=== PATIENT | female | born 2000 | race African-American/Black ===

== ENCOUNTER 2019-08-05 16:58 | Emergency (ER) | payer OTHER ==
[~2019-08-05] VITALS: Ht 154.9 cm; Wt 67.8 kg
[2019-08-05] MEDS ORDERED: CYCLOBENZAPRINE 10 MG TAB PO ONE (20:00)
[2019-08-05] MEDS ORDERED: LIDOCAINE 5% (LIDODERM) PATCH TD ONE (20:00)
[2019-08-05] MEDS ORDERED: CYCL10TA PO (20:51)
[2019-08-05] MEDS ORDERED: LIDO1CRE2 TOP (20:55)
[2019-08-05 20:57] VITALS: BP 123/73
[2019-08-05] MEDS ORDERED: **NOTE PATIENT COMMENT** MISC XX SCH (21:00)
== END 2019-08-05 21:00 | disposition home or self-care (01) ==
LOC: M ED 16:58
DX: S16.1XXA Strain of muscle, fascia and tendon at neck level, initial encounter (principal); X58.XXXA Exposure to other specified factors, initial encounter; Y92.89 Other specified places as the place of occurrence of the external cause; Z91.018 Allergy to other foods; Z88.8 Allergy status to other drugs, medicaments and biological substances

== ENCOUNTER → 2020-01-29 | Outpatient (CLI) | payer OTHER ==
[~2020-01-29] MED LIST: CYCL-707 PO; LIDO1CRE2 TOP
--- NOTE | 2020-02-10 13:20 | REP ---
FOCUSED RIGHT BREAST SONOGRAPHY HISTORY: Upper outer quadrant pain right breast. Focal pain since July 2019. SONOGRAPHIC FINDINGS: At the time of todays exam, the patient reports the area of pain inferiorly in the right breast. This area is scanned. In the 6 o'clock position, 1 cm from the nipple there is an oval-shaped, somewhat lobulated, well-defined hypoechoic solid mass. This contains multiple echogenic foci consistent with calcification casting acoustic shadowing. There is internal Doppler flow. The lesion measures 29 x 13 x 24 mm. Heterogeneous fibroglandular background echotexture is seen adjacent and throughout this region. No other suspicious finding. IMPRESSION: There is a 29-mm solid oval-shaped mass in the 6 o'clock position of the right breast in the area where the patient describes pain. 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 It is not a simple cyst. Ultrasound-guided needle biopsy should be considered. BI-RADS Category is felt to be best assigned as category 4 suspicious right breast imaging MTDD
== END ==
LOC: M WHC 12:32
PROVIDERS: ATTEND Family Medicine
DX: N63.15 Unspecified lump in the right breast, overlapping quadrants (principal); N64.4 Mastodynia

== ENCOUNTER → 2020-03-24 | Outpatient (CLI) | payer OTHER ==
[2020-03-24 11:41] VITALS: BP 118/58
--- NOTE | 2020-03-24 12:10 | REP ---
INDICATION: RT BREAST MASS,U/S GUIDED BIOPSY. COMPARISON: Ultrasound 01/29/2020 TECHNIQUE: ML and CC views of the right breast are performed following ultrasound-guided biopsy of a mass at the 6 o'clock position. FINDINGS: Biopsy clip is seen at 6 o'clock, at the site of the biopsy. Vague nodular mass is noted at that location. There are couple of adjacent tiny calcifications. IMPRESSION: There appears to be good placement of the biopsy clip following ultrasound-guided biopsy of a nodule in the right breast at about 6 o'clock. RECOMMENDATION: Correlate with pathology results <Electronically signed by Eligio Doe > 03/24/20 [id number]
--- NOTE | 2020-03-24 14:49 | REP ---
ULTRASOUND-GUIDED RIGHT BREAST BIOPSY: The procedure was performed under the general supervision of Dr. Doe. The patient has a history of a 2.9 cm solid oval-shaped mass in the 6 o'clock position of the right breast seen on a previous ultrasound dated 01/29/20. The risks and benefits of the procedure were explained to the patient and informed consent was obtained. PROCEDURE: The right beast nodule was localized using ultrasound guidance. The skin was prepped and draped in a sterile fashion. 1% lidocaine was used as a local anesthetic. Using ultrasound guidance, a 14-gauge coaxial needle biopsy system was inserted and 6 core biopsy samples were obtained. A marker clip (HydroMARK Shape 4) was inserted at the biopsy site. The patient tolerated the procedure well and there were no immediate complications. KELLY
== END ==
LOC: M WHCPRO 09:57
PROVIDERS: ATTEND Physician Assistant
DX: N60.11 Diffuse cystic mastopathy of right breast (principal)

== ENCOUNTER 2021-02-16 15:17 | Emergency (ER) | payer OTHER ==
[~2021-02-16] VITALS: Ht 154.9 cm; Wt 62.7 kg
[2021-02-16 15:18] VITALS: BP 128/70
[2021-02-16 20:59] LABS: APPEARANCE, URINE HAZY (CLEAR); BACTERIA, URINE AUTO NEGATIVE (NEGATIVE); BILIRUBIN, URINE AUTO NEGATIVE (NEGATIVE); BLOOD, URINE BLOOD 3+ (NEGATIVE); COLOR, URINE YELLOW (YELLOW); GLUCOSE, URINE (UA) AUTO NEGATIVE (NEGATIVE); KETONE, URINE AUTO 1+ mg/dL (NEGATIVE); LEUKOCYTE ESTERASE, URINE AUTO NEGATIVE (NEGATIVE); MUCUS, URINE SMALL (NEGATIVE); NITRITE, URINE AUTO NEGATIVE (NEGATIVE); PROTEIN, URINE AUTO 1+ mg/dL (NEGATIVE); RBC, URINE AUTO 1 /HPF (0-3); SQUAMOUS EPITHELIAL CELL UR AU 4 /HPF (0-6); UROBILINOGEN, URINE AUTO 0.2 mg/dL (0.0-2.0); WBC, URINE AUTO 1 /HPF (0-3)
[2021-02-16 21:01] LABS: BASO # 0.1 10^3/uL (0.0-0.2); BASO % 0.9 % (0.0-1.0); EOS # 0.3 10^3/uL (0.0-0.5); EOS % 3.2 % (0.0-3.0); HEMATOCRIT 33.5 % (36.0-47.0); HEMOGLOBIN 11.3 g/dl (12.0-15.5); LYMPH % 25.7 % (24.0-44.0); MEAN CORPUSCULAR HEMOGLOBIN 29.1 pg (27.0-33.0); MEAN CORPUSCULAR HGB CONC 33.7 g/dl (32.0-36.5); MEAN CORPUSCULAR VOLUME 86.3 fl (80.0-96.0); MONO # 0.6 10^3/uL (0.0-0.8); MONO % 7.6 % (2.0-8.0); NEUTROPHILS # 4.9 10^3/uL (1.5-8.5); NEUTROPHILS % 62.3 % (36.0-66.0); PLATELET COUNT, AUTOMATED 230 10^3/uL (150-450); RED BLOOD COUNT 3.88 10^6/uL (4.00-5.40); WHITE BLOOD COUNT 7.9 10^3/uL (4.0-10.0)
--- NOTE | 2021-02-16 21:40 | REPVR ---
PROCEDURE INFORMATION: Exam: US First Trimester, Transabdominal Exam date and time: 02/16/2021 9:07 PM Age: 20 years old Clinical indication: Lmp or gestational age (in weeks): 12/21/20; Antepartum complications; Bleeding; ; Additional info: Groin pain, vaginal bleeding, 8wks preg TECHNIQUE: Imaging protocol: Real-time transabdominal obstetrical ultrasound of the maternal pelvis and a first trimester , less than 14 weeks 0 days, with image documentation. COMPARISON: No relevant prior studies available. FINDINGS: Gestation: Single gestational sac in the uterus demonstrated. Small perigestational bleed demonstrated along the inferior margin of the gestation sac measures 1.4 x 0.5 x 1.7 cm. Embryonic/ heart rate: heart rate is 174 bpm. Extra-embryonic membranes/Placenta: Unremarkable. No subchorionic bleed. Amniotic fluid: Amniotic fluid is normal for gestational age. BIOMETRY: Gestational age (AUA): Gestational age based on measurement of crown-rump length is 8 weeks 3 days versus 8 weeks 1 day using LMP of 12/21/2020. [place]-Rump length: Single fetus demonstrating a crown-rump length of 18.9 mm visualized. MATERNAL: Uterus: Unremarkable. Cervix: Unremarkable. Right adnexa: Unremarkable. Left adnexa: Cystic area in the left ovary measures 2.5 x 1.6 x 1.9 cm most consistent with a corpus luteum. Intraperitoneal space: No intraperitoneal free fluid. IMPRESSION: Small perigestational bleed. Otherwise unremarkable 1st trimester scan at 8 weeks 3 days based on crown-rump length. Electronically signed by: Juan Pablo Falcon On 02/16/2021 21:39:43 PM
== END 2021-02-16 22:20 | disposition home or self-care (01) ==
LOC: M ED 15:17
DX: O20.8 Other hemorrhage in early pregnancy (principal); Z3A.08 8 weeks gestation of pregnancy

== ENCOUNTER 2021-02-28 20:00 | Emergency (ER) | payer OTHER ==
[~2021-02-28] VITALS: Ht 154.9 cm; Wt 62.7 kg
[2021-03-01 00:21] LABS: HEMATOCRIT 33.8 % (36.0-47.0); HEMOGLOBIN 11.6 g/dl (12.0-15.5); MEAN CORPUSCULAR HEMOGLOBIN 29.7 pg (27.0-33.0); MEAN CORPUSCULAR HGB CONC 34.3 g/dl (32.0-36.5); MEAN CORPUSCULAR VOLUME 86.7 fl (80.0-96.0); PLATELET COUNT, AUTOMATED 222 10^3/uL (150-450)
--- NOTE | 2021-03-01 01:28 | REPVR ---
PROCEDURE INFORMATION: Exam: US First Trimester, Transabdominal Exam date and time: 03/01/2021 12:34 AM Age: 20 years old Clinical indication: Lmp or gestational age (in weeks): 12/21/20; Antepartum complications; Bleeding; ; Additional info: Vaginal bleeding, first trimester TECHNIQUE: Imaging protocol: Real-time transabdominal obstetrical ultrasound of the maternal pelvis and a first trimester , less than 14 weeks 0 days, with image documentation. COMPARISON: 1ST TRIMESTER US 02/16/2021 8:50 PM FINDINGS: Last menstrual period: 12/21/2020 Gestation: There is a single live intrauterine . There is a 5 mm in diameter yolk sac. Embryonic/ heart rate: 169 bpm Extra-embryonic membranes/Placenta: Anterior location. Grade 0. No perigestational hemorrhage or placental abruption is noted. Amniotic fluid: Amniotic fluid/chorionic fluid is normal for gestational age. BIOMETRY: Gestational age (AUA): 10 weeks 1 day Gestational age (LMP): 10 weeks 0 days Estimated due date (AUA): 12/26/2021 Estimated due date (LMP): 09/27/2021 [place]-Rump length: 32.09 mm MATERNAL: Uterus: The uterus is anteverted. No myometrial mass is noted. Cervix: Closed. Right adnexa: The right ovary is normal in appearance. No right ovarian cyst or right adnexal mass is noted. The right ovary measures 3.8 cm x 2 cm x 2.2 cm. The arterial and venous color Doppler flow and spectral waveforms within the right ovary are within normal limits, without evidence for right ovarian torsion. Left adnexa: The left ovary measures 3.6 cm x 1.7 cm x 3.2 cm and contains a 2 cm x 0.8 cm x 1.6 cm cyst with simple characteristics. The arterial and venous color Doppler flow and spectral waveforms within the left ovary are within normal limits, without evidence for left ovarian torsion. Intraperitoneal space: No free fluid is seen from the images obtained. IMPRESSION: Single live intrauterine with a gestational age based on today's ultrasound of 10 weeks 1 day and estimated due date on 09/26/2021 with appropriate signs of growth. A second trimester obstetrical ultrasound is suggested at 19-20 weeks gestation for a detailed anatomical survey. Electronically signed by: Nicko Pate On 03/01/2021 01:27:46 AM
[2021-03-01 01:56] VITALS: BP 112/75
== END 2021-03-01 01:58 | disposition home or self-care (01) ==
LOC: M ED 20:00
DX: N93.0 Postcoital and contact bleeding (principal); Z3A.10 10 weeks gestation of pregnancy

== ENCOUNTER 2021-04-02 18:56 | Emergency (ER) | payer OTHER ==
[~2021-04-02] VITALS: Ht 154.9 cm; Wt 60.4 kg
--- OUTSIDE RECORDS SUMMARY | 2021-04-02 19:04 | CCD ---
Author Author [facility] Organization [facility] Address Unknown Phone Unavailable Support Name Relationship Address Phone GARRY SHARMA Next Of Kin [address] [place] [address] [facility] Next Of Kin [address] [place] [address] Unavailable GARRY SHARMA ECON [address] [place] [address] Unavailable Re-disclosure Warning The records that you are about to access may contain information from federally-assisted alcohol or drug abuse programs. If such information is present, then the following federally mandated warning applies: This information has been disclosed to you from records protected by federal confidentiality rules (42 CFR part 2). The federal rules prohibit you from making any further disclosure of this information unless further disclosure is expressly permitted by the written consent of the person to whom it pertains or as otherwise permitted by 42 CFR part 2. A general authorization for the release of medical or other information is NOT sufficient for this purpose. The Federal rules restrict any use of the information to criminally investigate or prosecute any alcohol or drug abuse patient.The records that you are about to access may contain highly sensitive health information, the redisclosure of which is protected by Article 27-F of the [facility] Public Health law. If you continue you may have access to information: Regarding HIV / AIDS; Provided by facilities licensed or operated by the [facility] Office of Mental Health; or Provided by the [facility] Office for People With Developmental Disabilities. If such information is present, then the following [facility] mandated warning applies: This information has been disclosed to you from confidential records which are protected by state law. State law prohibits you from making any further disclosure of this information without the specific written consent of the person to whom it pertains, or as otherwise permitted by law. Any unauthorized further disclosure in violation of state law may result in a fine or long-term sentence or both. A general authorization for the release of medical or other information is NOT sufficient authorization for further disc losure. Medications Medication Brand Name Start Date Product Form Dose Route Admi nistrative Instructions Pharmacy Instructions Status Indications Reaction Description Data Source(s) Cephalexin 500 MG Oral Capsule CEPHALEXIN 03/04/2021 12:00:00 AM EDT capsule 28 TAKE ONE CAPSULE BY MOUTH FOUR TIMES A DAY FOR 7 DAYS TAKE ONE CAPSULE BY MOUTH FOUR TIMES A DAY FOR 7 DAYS SOLD: 03/04/2021 [facility] Insurance Providers Payer name Policy type / Coverage type Policy ID Covered republican ID Covered republican's relationship to muñoz Policy Muñoz Plan Information [facility] ACTIVE DUTY [id number] Problems, Conditions, and Diagnoses No Information Surgeries/Procedures No Information Results No Information Social History No Information
[2021-04-02] MEDS ORDERED: PSEU30TA86 PO (19:09)
[2021-04-02] MEDS ORDERED: PREN27TA3 PO (19:09)
[2021-04-02 20:50] VITALS: O2SAT 97
--- OUTSIDE RECORDS SUMMARY | 2021-04-02 21:28 | CCD ---
Author Author [facility] Organization [facility] Address Unknown Phone Unavailable Support Name Relationship Address Phone GARRY SHARMA Next Of Kin [address] [place] [address] [facility] Next Of Kin [address] [place] [address] Unavailable GARRY SHARMA ECON [address] [place] [address] Unavailable Re-disclosure Warning The records that you [...] is protected by Article 27-F of the [facility] Public Health law. If you continue you may have access to information: Regarding HIV / AIDS; Provided by facilities licensed or operated by the [facility] Office of Mental Health; or Provided by the [facility] Office for People With Developmental Disabilities. If such information is present, then the following [facility] mandated warning applies: This information has been [...] law may result in a fine or prison sentence or both. A general authorization for [...] relationship to muñoz Policy Muñoz Plan Information [facility] ACTIVE DUTY [id number] Problems, Conditions, and Diagnoses No Information Surgeries/Procedures No Information Results No Information Social History No Information
[2021-04-02 22:56] VITALS: BP 118/72
== END 2021-04-02 23:29 | disposition home or self-care (01) ==
LOC: M ED 18:56
DX: O98.512 Other viral diseases complicating pregnancy, second trimester (principal); R05.9 Cough, unspecified; U07.1 COVID-19; Z3A.14 14 weeks gestation of pregnancy

== ENCOUNTER → 2021-05-08 | Outpatient (CLI) | payer OTHER ==
[~2021-05-08] MED LIST changes: +PREN27TA3 PO; +PSEU30TA86 PO
== END ==
LOC: M LAB 12:34
PROVIDERS: ATTEND Advanced Practice Midwife
DX: R30.0 Dysuria (principal)

== ENCOUNTER → 2021-05-08 | Outpatient (REF) | payer OTHER ==
[2021-05-08 13:54] LABS: APPEARANCE, URINE HAZY (CLEAR); BACTERIA, URINE AUTO 1+ (NEGATIVE); BILIRUBIN, URINE AUTO NEGATIVE (NEGATIVE); BLOOD, URINE BLOOD NEGATIVE (NEGATIVE); COLOR, URINE YELLOW (YELLOW); GLUCOSE, URINE (UA) AUTO NEGATIVE (NEGATIVE); KETONE, URINE AUTO NEGATIVE (NEGATIVE); LEUKOCYTE ESTERASE, URINE AUTO 3+ (NEGATIVE); NITRITE, URINE AUTO NEGATIVE (NEGATIVE); PROTEIN, URINE AUTO NEGATIVE (NEGATIVE); RBC, URINE AUTO 1 /HPF (0-3); SPECIFIC GRAVITY URINE AUTO 1.009 (1.002-1.035); SQUAMOUS EPITHELIAL CELL UR AU 5 /HPF (0-6); UROBILINOGEN, URINE AUTO 0.2 mg/dL (0.0-2.0); WBC, URINE AUTO 8 /HPF (0-3)
== END ==
LOC: M LAB REF 13:43
PROVIDERS: ATTEND Advanced Practice Midwife
DX: R30.0 Dysuria (principal)

== ENCOUNTER 2021-06-01 18:22 | Outpatient (CLI) | payer OTHER ==
[~2021-06-01] VITALS: Ht 154.9 cm; Wt 71.4 kg
[2021-06-01 18:53] VITALS: BP 127/75
[2021-06-01] MEDS ORDERED: HOME MED LIST COMPLETE! XX SCH (19:25)
--- NOTE | 2021-06-01 22:26 | IPNPDOC ---
Text Note Date of Service Vital Signs Label Value Date Time Patient Temperature 98.7 degrees F 06/01/211852 Temperature Source Temporal 06/01/211852 Pulse 78 06/01/211852 Respiratory Rate 16 bpm 06/01/211852 Blood Pressure Assessment 127/75 (92) 06/01/211852 Source Automatic Cuff (NIBP) The patient was seen on 06/01/21. NOTE 06/01/21 20 YO AT 25. 6 WEEKS BY EARLY US 8.6 WEEKS EDC 09/27/21 HISTORY DECREASED MOVEMENT X 12 HOURS. RISK FACTORS GBS POSITIVE EXAMINATION NO DISTRESS FHR 144 BPM ACTIVE FETUS WITH ACCELERATIONS MODERATE VARIABILITY NO DECELERATIONS 15X15 ACCELERATIONS PLAN DISCHARGE PRECAUTIONS GIVEN KEEP APPOINTMENT FT DRUM OB UNDELIVERED VS,Fishbone, I+O VS, Fishbone, I+O Vital Signs Date Time Temp Pulse Resp B/P (MAP) Pulse Ox O2 Delivery O2 Flow Rate FiO2 06/01/21 18:53 98.7 78 16 127/75 (92) Jovany Son MD Jun 01, 2021 22:24
== END 2021-06-01 20:10 | disposition home or self-care (01) ==
LOC: M LDO 18:22
PROVIDERS: ATTEND Obstetrics & Gynecology
DX: O36.8120 Decreased fetal movements, second trimester, not applicable or unspecified (principal); Z3A.25 25 weeks gestation of pregnancy
CPT/HCPCS: 59025; G0378; G0463

== ENCOUNTER 2021-08-24 00:25 | Outpatient (CLI) | payer OTHER ==
[~2021-08-24] VITALS: Ht 154.9 cm; Wt 81.0 kg
[2021-08-24] MEDS ORDERED: HOME MED LIST COMPLETE! XX SCH (00:35)
[2021-08-24 00:50] VITALS: BP 132/79
[2021-08-24] MEDS ORDERED: FLUCONAZOLE 50MG TABLET PO ONE (01:45)
== END 2021-08-24 01:58 | disposition home or self-care (01) ==
LOC: M LDO 00:25
PROVIDERS: ATTEND Obstetrics & Gynecology
DX: O60.03 Preterm labor without delivery, third trimester (principal); Z3A.35 35 weeks gestation of pregnancy; O23.593 Infection of other part of genital tract in pregnancy, third trimester; Z88.8 Allergy status to other drugs, medicaments and biological substances; Z91.018 Allergy to other foods
CPT/HCPCS: 59025; 81001; 87086; G0463

== ENCOUNTER 2021-09-27 08:12 | Inpatient (IN) | payer OTHER ==
[2021-09-27] VITALS (9 sets, daily range): BP systolic 114–135; BP diastolic 57–86
[~2021-09-27] VITALS: Ht 154.9 cm; Wt 85.8 kg
[2021-09-27] MEDS ORDERED: HOME MED LIST COMPLETE! XX SCH (08:50)
[2021-09-27] MEDS ORDERED: PENICILLIN G POTASSIUM IV 5 MU in D5W MINI-BAG PLUS 100 ML IV STA (09:14)
[2021-09-27] MEDS ORDERED: LACTATED RINGER'S 1000 ML IV STA (09:14)
[2021-09-27] MEDS ORDERED: LR 1,000 ML IV SCH (09:15)
[2021-09-27] MEDS ORDERED: CARBOPROST TROMETHAMINE 250 MCG/ML AMP IM PRN (09:15)
[2021-09-27] MEDS ORDERED: TRANEXAMIC ACID INJection 1,000 MG in NS 100 ML IV PRN (09:15)
[2021-09-27] MEDS ORDERED: METHYLERGONOVINE MALEATE 0.2 MG/ML VIAL (J2210) IM PRN (09:15)
[2021-09-27] MEDS ORDERED: OXYTOCIN DRIP 30 UNITS in IV 1 EA IV PRN ×4 (09:15)
[2021-09-27] MEDS ORDERED: miSOPROStol 50MCG 1/2 TABLET SL ONE ×2 (09:15→12:25)
[2021-09-27] MEDS ORDERED: LIDOCAINE 1% MDV 20ML VIAL INFIL PRN (09:15)
[2021-09-27 09:49] LABS: HEMATOCRIT 34.1 % (36.0-47.0); HEMOGLOBIN 11.7 g/dl (12.0-15.5); MEAN CORPUSCULAR HEMOGLOBIN 30.4 pg (27.0-33.0); MEAN CORPUSCULAR HGB CONC 34.3 g/dl (32.0-36.5); MEAN CORPUSCULAR VOLUME 88.6 fl (80.0-96.0); PLATELET COUNT, AUTOMATED 104 10^3/uL (150-450); RED BLOOD COUNT 3.85 10^6/uL (4.00-5.40); WHITE BLOOD COUNT 8.4 10^3/uL (4.0-10.0)
[2021-09-27] MEDS ORDERED: PENICILLIN G POTASSIUM IV 2.5 MU in IV 1 EA IV SCH (13:15)
[2021-09-27] MEDS ORDERED: miSOPROStol 50MCG 1/2 TABLET PO ONE (19:30)
[2021-09-27] MEDS ORDERED: **PENDING PCN ENTRY XX SCH (21:00)
[2021-09-28] VITALS (63 sets, daily range): BP systolic 99–181; BP diastolic 55–104
[2021-09-28] MEDS ORDERED: BUTORPHANOL 2 MG/ML INJ (J0595) IV ONE (00:15)
[2021-09-28] MEDS ORDERED: PROMETHAZINE 25MG/ML 1ML VIAL IV ONE (00:15)
[2021-09-28] MEDS: miSOPROStol 50MCG 1/2 TABLET PO SCH ×6 (00:24→20:00)
[2021-09-28] MEDS ORDERED: PENICILLIN G POTASSIUM IV 5 MU in D5W MINI-BAG PLUS 100 ML IV STA (04:41)
[2021-09-28] MEDS ORDERED: OXYTOCIN DRIP 30 UNITS in IV 1 EA IV SCH ×2 (05:05→17:35)
[2021-09-28] MEDS ORDERED: NALOXONE INJ 0.4MG/1ML VIAL (J2310 PER 1MG) IV PRN ×3 (05:40→17:20)
[2021-09-28] MEDS ORDERED: REFRIGERATOR IV KEYS XX PRN (05:40)
[2021-09-28] MEDS ORDERED: EPIDURAL/PCA KEYS XX PRN (05:40)
[2021-09-28] MEDS ORDERED: LACTATED RINGER'S 1000 ML IV PRN (05:40)
[2021-09-28] MEDS ORDERED: ONDANSETRON 4MG/2ML VIAL IV PRN ×4 (05:40→18:15)
[2021-09-28] MEDS ORDERED: EPIDURAL COMMENT XX SCH (05:40)
[2021-09-28] MEDS ORDERED: diphenhydrAMINE 50MG/ML VIAL (J1200) IV PRN ×2 (05:40→17:20)
[2021-09-28] MEDS ORDERED: ePHEDrine SULFATE 25 MG/5 ML(5MG/ML) SYRINGE IV PRN (05:40)
[2021-09-28] MEDS ORDERED: FENTANYL 2MCG/ML ROPIVACAINE 0.2% IN 0.9% NACL 100ML IVBAG As Ordered ONE (05:43)
[2021-09-28] MEDS: FENTANYL/ROPIVACAINE/NACL BAG 100 ML EPIDURAL SCH ×2 (06:32→14:00)
[2021-09-28] MEDS: LR 1,000 ML IV SCH ×3 (06:57→22:00)
[2021-09-28] MEDS: PENICILLIN G POTASSIUM IV 2.5 MU in IV 1 EA IV SCH ×4 (08:49→21:00)
[2021-09-28] MEDS ORDERED: AZITHROMYCIN INJ 500 MG, VIAL MATE ADAPTER 1 EACH in NS 250 ML IV ONE (16:20)
[2021-09-28] MEDS ORDERED: ceFAZolin 2 GM/D5W 50 ML IV BAG (J0690 PER 500MG) As Ordered ONE (16:20)
[2021-09-28] MEDS ORDERED: ceFAZolin SOD 2 GM in IV 1 EA IV ONE (16:20)
[2021-09-28] MEDS: BICITRA 30ML SOLN UDC PO ONE ×2 (16:20→16:25)
[2021-09-28] MEDS ORDERED: AZITHROMYCIN INJ 500MG VIAL As Ordered ONE (16:21)
[2021-09-28] MEDS ORDERED: BICITRA 30ML SOLN UDC As Ordered ONE (16:21)
[2021-09-28] MEDS ORDERED: METOCLOPRAMIDE INJ 10MG/2ML VIAL (J2765 PER 1) IV PRN ×2 (17:20→18:15)
[2021-09-28] MEDS ORDERED: RHOGAM 300 MCG (1500 IU) INJ (J2790) IM SCH (17:35)
[2021-09-28] MEDS ORDERED: MORPHINE 4 MG/ML 1ML VIAL/SYRINGE IV PRN (17:35)
[2021-09-28] MEDS ORDERED: MEASLES,MUMPS,RUBELLA VACCINE INJ (MMR-II) (90707) SC SCH (17:35)
[2021-09-28] MEDS ORDERED: oxyCODONE 5MG TAB PO PRN ×2 (17:35→18:15)
[2021-09-28] MEDS ORDERED: ONDANSETRON 4MG TAB PO PRN (17:35)
[2021-09-28] MEDS ORDERED: LR 1,000 ML IV SCH ×2 (17:35→18:15)
[2021-09-28] MEDS ORDERED: DOCUSATE SODIUM 100MG CAPSULE PO PRN (17:35)
[2021-09-28] MEDS ORDERED: ACETAMINOPHEN 500 MG TAB PO SCH (17:40)
[2021-09-28] MEDS ORDERED: fentaNYL 100 MCG/2 ML INJECTION IV PRN (18:15)
[2021-09-28] MEDS: oxyCODONE 5MG TAB PO PRN (19:51)
[2021-09-28] MEDS: ACETAMINOPHEN 500 MG TAB PO SCH (21:17)
[2021-09-29 02:00] VITALS: BP 117/70
[2021-09-29] MEDS: oxyCODONE 5MG TAB PO PRN ×3 (02:03→14:58)
[2021-09-29] MEDS: ACETAMINOPHEN 500 MG TAB PO SCH ×3 (04:47→21:39)
[2021-09-29 06:00] VITALS: BP 127/59
[2021-09-29] MEDS: LR 1,000 ML IV SCH (06:11)
[2021-09-29 07:17] LABS: HEMATOCRIT 34.4 % (36.0-47.0); HEMOGLOBIN 11.7 g/dl (12.0-15.5); MEAN CORPUSCULAR HEMOGLOBIN 30.3 pg (27.0-33.0); MEAN CORPUSCULAR VOLUME 89.1 fl (80.0-96.0); PLATELET COUNT, AUTOMATED 113 10^3/uL (150-450); RED BLOOD COUNT 3.86 10^6/uL (4.00-5.40); WHITE BLOOD COUNT 11.9 10^3/uL (4.0-10.0)
[2021-09-29] MEDS: PRENATAL VITAMINS CHEWABLE TABLET PO SCH (08:37)
[2021-09-29 10:00] VITALS: BP 127/66
[2021-09-29 14:00] VITALS: BP 121/85
[2021-09-29] MEDS: SIMETHICONE 80MG CHEW TAB PO PRN (17:52)
[2021-09-29 18:00] VITALS: BP 129/79
[2021-09-29] MEDS ORDERED: oxyCODONE 5MG TAB PO PRN (18:00)
[2021-09-29 22:00] VITALS: BP 152/89
[2021-09-30 02:00] VITALS: BP 124/82
[2021-09-30] MEDS: ACETAMINOPHEN 500 MG TAB PO SCH (05:12)
[2021-09-30 06:00] VITALS: BP 126/77
[2021-09-30] MEDS: PRENATAL VITAMINS CHEWABLE TABLET PO SCH (08:11)
[2021-09-30 10:00] VITALS: BP 127/80
[2021-09-30] MEDS: SIMETHICONE 80MG CHEW TAB PO PRN (10:12)
[2021-09-30] MEDS: oxyCODONE 5MG TAB PO PRN (11:59)
== END 2021-09-30 19:48 | disposition home or self-care (01) | DRG 773 ==
LOC: M LDI 08:12 → M OBS 09-28 19:04
PROVIDERS: ADMIT Advanced Practice Midwife; ATTEND Obstetrics & Gynecology
PROC: 3E0P7GC Introduction of Other Therapeutic Substance into Female Reproductive, Via Natural or Artificial Opening (ICD-10-PCS; 2021-09-27)
PROC: 10D00Z1 Extraction of Products of Conception, Low, Open Approach (ICD-10-PCS; principal; 2021-09-28 16:29)
DX: O26.03 Excessive weight gain in pregnancy, third trimester (principal); Z3A.40 40 weeks gestation of pregnancy; O76 Abnormality in fetal heart rate and rhythm complicating labor and delivery; O64.0XX0 Obstructed labor due to incomplete rotation of fetal head, not applicable or unspecified; Z37.0 Single live birth; O62.0 Primary inadequate contractions; O99.824 Streptococcus B carrier state complicating childbirth

== ENCOUNTER → 2022-06-22 | Outpatient (CLI) | payer OTHER ==
[2022-06-22 19:27] LABS: HCG, SERUM QUANTITATIVE 129.9 MIU/ML (<4.2)
[2022-06-22 19:41] LABS: HCG, SERUM QUALITATIVE POSITIVE (NEGATIVE)
== END ==
LOC: M LAB 18:33
PROVIDERS: ATTEND Physician Assistant Medical
DX: N91.2 Amenorrhea, unspecified (principal)

== ENCOUNTER 2022-06-24 10:21 | Emergency (ER) | payer OTHER ==
[~2022-06-24] VITALS: Ht 154.9 cm; Wt 74.3 kg
[2022-06-24 12:07] LABS: BASO # 0.1 10^3/uL (0.0-0.2); BASO % 0.7 % (0.0-1.0); EOS # 0.3 10^3/uL (0.0-0.5); EOS % 3.8 % (0.0-3.0); HEMATOCRIT 38.3 % (36.0-47.0); HEMOGLOBIN 12.5 g/dl (12.0-15.5); LYMPH # 1.4 10^3/uL (1.5-5.0); LYMPH % 18.7 % (24.0-44.0); MEAN CORPUSCULAR HEMOGLOBIN 28.3 pg (27.0-33.0); MEAN CORPUSCULAR HGB CONC 32.6 g/dl (32.0-36.5); MEAN CORPUSCULAR VOLUME 86.8 fl (80.0-96.0); MONO # 0.6 10^3/uL (0.0-0.8); MONO % 7.4 % (2.0-8.0); NEUTROPHILS # 5.2 10^3/uL (1.5-8.5); NEUTROPHILS % 69.3 % (36.0-66.0); PLATELET COUNT, AUTOMATED 245 10^3/uL (150-450); RED BLOOD COUNT 4.41 10^6/uL (4.00-5.40); WHITE BLOOD COUNT 7.6 10^3/uL (4.0-10.0)
[2022-06-24 12:37] LABS: BLOOD UREA NITROGEN 11 MG/DL (9-23); CALCIUM LEVEL 9.3 MG/DL (8.5-10.1); CARBON DIOXIDE LEVEL 27 MMOL/L (20-31); CHLORIDE LEVEL 103 MMOL/L (98-107); CREATININE FOR GFR 0.52 MG/DL (0.55-1.30); GLOMERULAR FILTRATION RATE > 60.0 (>60); GLUCOSE, FASTING 91 MG/DL (60-100); HCG, SERUM QUANTITATIVE 79.3 MIU/ML (<4.2); POTASSIUM SERUM 3.9 MMOL/L (3.5-5.1); SODIUM LEVEL 136 MMOL/L (136-145)
[2022-06-24 14:22] VITALS: BP 121/70
== END 2022-06-24 14:23 | disposition home or self-care (01) ==
LOC: M ED 10:21
DX: O20.0 Threatened abortion (principal); O34.81 Maternal care for other abnormalities of pelvic organs, first trimester; Z88.8 Allergy status to other drugs, medicaments and biological substances; Z3A.00 Weeks of gestation of pregnancy not specified; Z79.899 Other long term (current) drug therapy

== ENCOUNTER → 2022-06-26 | Outpatient (CLI) | payer SELFPAY | LOC: M LAB 12:38 | PROVIDERS: ATTEND Emergency Medicine | DX: O20.0 Threatened abortion (principal) ==

== ENCOUNTER → 2022-08-19 | Outpatient (REF) | payer OTHER ==
[2022-08-19 17:23] LABS: APPEARANCE, URINE HAZY (CLEAR); BACTERIA, URINE AUTO NEGATIVE (NEGATIVE); BILIRUBIN, URINE AUTO NEGATIVE (NEGATIVE); BLOOD, URINE BLOOD NEGATIVE (NEGATIVE); COLOR, URINE YELLOW (YELLOW); GLUCOSE, URINE (UA) AUTO NEGATIVE (NEGATIVE); KETONE, URINE AUTO NEGATIVE (NEGATIVE); LEUKOCYTE ESTERASE, URINE AUTO NEGATIVE (NEGATIVE); MUCUS, URINE SMALL (NEGATIVE); NITRITE, URINE AUTO NEGATIVE (NEGATIVE); PROTEIN, URINE AUTO NEGATIVE (NEGATIVE); RBC, URINE AUTO 0 /HPF (0-3); SPECIFIC GRAVITY URINE AUTO 1.023 (1.002-1.035); SQUAMOUS EPITHELIAL CELL UR AU 2 /HPF (0-6); UROBILINOGEN, URINE AUTO 0.2 mg/dL (0.0-2.0); WBC, URINE AUTO 1 /HPF (0-3)
== END ==
LOC: M LAB REF 16:37
PROVIDERS: ATTEND Physician Assistant
DX: N39.0 Urinary tract infection, site not specified (principal)

== ENCOUNTER → 2022-10-05 | Outpatient (REF) | payer OTHER | LOC: M LAB REF 18:29 | PROVIDERS: ATTEND Physician Assistant | DX: N91.2 Amenorrhea, unspecified (principal) ==

== ENCOUNTER 2022-11-11 15:43 | Emergency (ER) | payer OTHER ==
[~2022-11-11] VITALS: Ht 154.9 cm; Wt 76.6 kg
[2022-11-11 15:44] VITALS: BP 110/67; TEMP 96.9; O2SAT 100
[2022-11-11 17:07] LABS: BASO # 0.1 10^3/uL (0.0-0.2); BASO % 0.6 % (0.0-1.0); EOS # 0.4 10^3/uL (0.0-0.5); EOS % 4.2 % (0.0-3.0); HEMATOCRIT 35.8 % (36.0-47.0); HEMOGLOBIN 12.1 g/dl (12.0-15.5); LYMPH # 2.2 10^3/uL (1.5-5.0); MEAN CORPUSCULAR HEMOGLOBIN 29.2 pg (27.0-33.0); MEAN CORPUSCULAR HGB CONC 33.8 g/dl (32.0-36.5); MEAN CORPUSCULAR VOLUME 86.3 fl (80.0-96.0); MONO # 0.7 10^3/uL (0.0-0.8); MONO % 7.3 % (2.0-8.0); NEUTROPHILS # 6.1 10^3/uL (1.5-8.5); NEUTROPHILS % 64.6 % (36.0-66.0); PLATELET COUNT, AUTOMATED 238 10^3/uL (150-450); RED BLOOD COUNT 4.15 10^6/uL (4.00-5.40); WHITE BLOOD COUNT 9.4 10^3/uL (4.0-10.0)
[2022-11-11 17:35] LABS: BLOOD UREA NITROGEN 9 MG/DL (9-23); CALCIUM LEVEL 9.4 MG/DL (8.5-10.1); CARBON DIOXIDE LEVEL 26 MMOL/L (20-31); CHLORIDE LEVEL 103 MMOL/L (98-107); CREATININE FOR GFR 0.61 MG/DL (0.55-1.30); GLOMERULAR FILTRATION RATE > 60.0 (>60); GLUCOSE, FASTING 87 MG/DL (60-100); POTASSIUM SERUM 4.1 MMOL/L (3.5-5.1); SODIUM LEVEL 136 MMOL/L (136-145)
[2022-11-11 18:04] LABS: HCG, SERUM QUANTITATIVE 102342.5 MIU/ML (<4.2)
[2022-11-13 04:25] LABS: GC DNA AMPLIFICATION NEGATIVE (NEGATIVE)
== END 2022-11-11 20:08 | disposition left against medical advice (07) ==
LOC: M ED 15:43
DX: O26.899 Other specified pregnancy related conditions, unspecified trimester (principal); R10.2 Pelvic and perineal pain; Z3A.10 10 weeks gestation of pregnancy

== ENCOUNTER 2023-06-02 05:42 | Inpatient (IN) | payer OTHER ==
[2023-06-02] VITALS (10 sets, daily range): BP systolic 102–125; BP diastolic 55–80; TEMP 97.4; O2SAT 95–100
[~2023-06-02] VITALS: Ht 154.9 cm; Wt 83.5 kg
[2023-06-02] MEDS ORDERED: LACTATED RINGER'S 1000 ML IV STA (05:53)
[2023-06-02] MEDS ORDERED: BICITRA 30ML SOLN UDC PO ONE (05:55)
[2023-06-02] MEDS ORDERED: ceFAZolin SOD 2 GM in IV 1 EA IV ONE (05:55)
[2023-06-02] MEDS: LR 1,000 ML IV SCH ×5 (05:55→21:55)
[2023-06-02 06:42] LABS: HEMATOCRIT 37.7 % (36.0-47.0); HEMOGLOBIN 12.8 g/dl (12.0-15.5); MEAN CORPUSCULAR HEMOGLOBIN 29.8 pg (27.0-33.0); MEAN CORPUSCULAR VOLUME 87.7 fl (80.0-96.0); PLATELET COUNT, AUTOMATED 102 10^3/uL (150-450); WHITE BLOOD COUNT 9.9 10^3/uL (4.0-10.0)
[2023-06-02] MEDS ORDERED: ONDANSETRON 4MG 2ML VIAL As Ordered ONE (07:26)
[2023-06-02] MEDS ORDERED: OXYTOCIN INJ 10UNITS/ML 1ML VIAL As Ordered ONE (07:27)
[2023-06-02] MEDS ORDERED: PHENYLephrine 500MCG 5ML (100MCG/ML) SYRINGE As Ordered ONE (07:27)
[2023-06-02] MEDS ORDERED: MORPHINE PRES-FREE INJ 10 MG/10 ML VIAL As Ordered ONE (07:35)
[2023-06-02] MEDS ORDERED: ACETAMINOPHEN 1000MG 100ML IV BAG As Ordered ONE (07:57)
[2023-06-02 08:50] LABS: CORD GAS ABE A -1.7; CORD GAS HCO3 A 27.7 MMOL/L; CORD GAS O2 SAT A 25.2 %; CORD GAS PCO2 A 66.9 mmHg; CORD GAS PH A 7.235 UNITS; CORD GAS PO2 A 15.4 mmHg; CORD GAS SBC A 21.2 MMOL/L; CORD GAS TCO2 A 29.8 MMOL/L
[2023-06-02 08:51] LABS: CORD GAS ABE V -2.5; CORD GAS O2 SAT V 35.9 %; CORD GAS PCO2 V 53.4 mmHg; CORD GAS PH V 7.288 UNITS; CORD GAS PO2 V 17.1 mmHg; CORD GAS SBC V 20.8 MMOL/L; CORD GAS TCO2 V 26.6 MMOL/L
[2023-06-02] MEDS ORDERED: METHYLERGONOVINE MALEATE 0.2MG/ML 1ML VIAL IM PRN (09:10)
[2023-06-02] MEDS ORDERED: ONDANSETRON 4MG 2ML VIAL IV PRN ×2 (09:10→09:20)
[2023-06-02] MEDS ORDERED: oxyCODONE 5MG TAB PO PRN ×2 (09:10→09:20)
[2023-06-02] MEDS ORDERED: METOCLOPRAMIDE INJ 10MG/2ML VIAL IV PRN ×2 (09:10→09:20)
[2023-06-02] MEDS ORDERED: RHOGAM 300MCG (1500IU) INJ IM SCH (09:10)
[2023-06-02] MEDS ORDERED: OXYTOCIN DRIP 30 UNITS in IV 1 EA IV SCH (09:10)
[2023-06-02] MEDS ORDERED: **NOTE PATIENT COMMENT** MISC XX SCH (09:20)
[2023-06-02] MEDS ORDERED: NALOXONE INJ 0.4MG/1ML VIAL IV PRN ×2 (09:20)
[2023-06-02] MEDS ORDERED: LR 1,000 ML IV SCH (09:20)
[2023-06-02] MEDS ORDERED: diphenhydrAMINE 50MG/ML VIAL IV PRN (09:20)
[2023-06-02] MEDS ORDERED: OXYTOCIN 30UNITS IN 0.9% NaCl 500ML IV BAG As Ordered ONE (09:33)
[2023-06-02] MEDS ORDERED: fentaNYL 100 MCG/2 ML INJECTION As Ordered ONE (09:33)
[2023-06-02] MEDS: fentaNYL 100 MCG/2 ML INJECTION IV PRN ×3 (09:53→10:28)
[2023-06-02] MEDS: SLF 3 ML SYR IV SCH ×2 (11:08→17:20)
[2023-06-02] MEDS: DOCUSATE SODIUM 100MG CAPSULE PO SCH ×2 (11:19→20:20)
[2023-06-02] MEDS: PRENATAL VITAMINS CHEWABLE TABLET PO SCH (11:19)
[2023-06-02] MEDS: ACETAMINOPHEN 500 MG TAB PO SCH ×2 (14:00→20:21)
[2023-06-03] MEDS: LR 1,000 ML IV SCH ×2 (01:10→05:55)
[2023-06-03] MEDS: SLF 3 ML SYR IV SCH (01:20)
[2023-06-03] MEDS: ACETAMINOPHEN 500 MG TAB PO SCH ×4 (01:57→21:40)
[2023-06-03 02:00] VITALS: BP 114/56; O2SAT 100
[2023-06-03 06:00] VITALS: BP 105/68; O2SAT 97
[2023-06-03 07:12] LABS: HEMATOCRIT 34.5 % (36.0-47.0); HEMOGLOBIN 11.7 g/dl (12.0-15.5); MEAN CORPUSCULAR HEMOGLOBIN 29.9 pg (27.0-33.0); MEAN CORPUSCULAR HGB CONC 33.9 g/dl (32.0-36.5); MEAN CORPUSCULAR VOLUME 88.2 fl (80.0-96.0); PLATELET COUNT, AUTOMATED 102 10^3/uL (150-450); RED BLOOD COUNT 3.91 10^6/uL (4.00-5.40); WHITE BLOOD COUNT 10.3 10^3/uL (4.0-10.0)
[2023-06-03] MEDS: PRENATAL VITAMINS CHEWABLE TABLET PO SCH (09:25)
[2023-06-03] MEDS: DOCUSATE SODIUM 100MG CAPSULE PO SCH ×2 (09:25→20:03)
[2023-06-03] MEDS: oxyCODONE 5MG TAB PO PRN ×3 (09:32→23:01)
[2023-06-03 10:00] VITALS: BP 111/68; O2SAT 97
[2023-06-03 14:00] VITALS: BP 111/60; O2SAT 98
[2023-06-03] MEDS: SIMETHICONE 80MG CHEW TAB PO PRN ×2 (16:37→21:39)
[2023-06-03 18:00] VITALS: BP 129/63; O2SAT 99
[2023-06-03 22:00] VITALS: BP 101/60; O2SAT 99
[2023-06-04 02:00] VITALS: BP 100/59; O2SAT 100
[2023-06-04] MEDS: ACETAMINOPHEN 500 MG TAB PO SCH ×2 (02:43→08:09)
[2023-06-04] MEDS: oxyCODONE 5MG TAB PO PRN ×2 (02:46→08:08)
[2023-06-04 06:00] VITALS: BP 105/60; O2SAT 99
[2023-06-04] MEDS: DOCUSATE SODIUM 100MG CAPSULE PO SCH (08:06)
[2023-06-04] MEDS: PRENATAL VITAMINS CHEWABLE TABLET PO SCH (08:06)
[2023-06-04] MEDS: SIMETHICONE 80MG CHEW TAB PO PRN (08:07)
[2023-06-04] MEDS ORDERED: MEASLES,MUMPS,RUBELLA VACCINE INJ (MMR-II) SC.IMMUN ONE (09:00)
[2023-06-04 10:07] VITALS: BP 99/59; O2SAT 99
== END 2023-06-04 14:09 | disposition home or self-care (01) | DRG 773 ==
LOC: M LDI 05:42 → M OBS 10:40
PROVIDERS: ADMIT Obstetrics & Gynecology; ATTEND Obstetrics & Gynecology
PROC: 10D00Z1 Extraction of Products of Conception, Low, Open Approach (ICD-10-PCS; principal; 2023-06-02 07:30)
DX: O34.211 Maternal care for low transverse scar from previous cesarean delivery (principal); Z3A.39 39 weeks gestation of pregnancy; Z37.0 Single live birth

== ENCOUNTER → 2023-12-29 | Outpatient (CLI) | payer OTHER ==
[~2023-12-29] MED LIST changes: +PROHANCE 279.3MG/ML 15ML VIAL ONE; -PSEU30TA86 PO; +PSEU30TA87 PO
== END ==
LOC: M PLAIMG 12:27
PROVIDERS: ATTEND Student in an Organized Health Care Education/Training Program
DX: R93.6 Abnormal findings on diagnostic imaging of limbs (principal)

== ENCOUNTER → 2024-01-11 | Outpatient (CLI) | payer OTHER ==
[~2024-01-11] MED LIST changes: -PROHANCE 279.3MG/ML 15ML VIAL ONE
== END ==
LOC: M RAD 14:13
PROVIDERS: ATTEND Physician Assistant Medical
DX: S69.80XA Other specified injuries of unspecified wrist, hand and finger(s), initial encounter (principal); W18.30XA Fall on same level, unspecified, initial encounter; Y92.009 Unspecified place in unspecified non-institutional (private) residence as the place of occurrence of the external cause

== ENCOUNTER → 2024-06-19 | Outpatient (REF) | payer OTHER ==
[~2024-06-19] MED LIST changes: -LIDO1CRE2 TOP; +LIDO4CRE12 TOP
[2024-06-19 12:56] LABS: APPEARANCE, URINE HAZY (CLEAR); BACTERIA, URINE AUTO NEGATIVE (NEGATIVE); BILIRUBIN, URINE AUTO NEGATIVE (NEGATIVE); BLOOD, URINE BLOOD NEGATIVE (NEGATIVE); COLOR, URINE YELLOW (YELLOW); GLUCOSE, URINE (UA) AUTO NEGATIVE (NEGATIVE); KETONE, URINE AUTO TRACE mg/dL (NEGATIVE); LEUKOCYTE ESTERASE, URINE AUTO 2+ (NEGATIVE); MUCUS, URINE SMALL (NEGATIVE); NITRITE, URINE AUTO NEGATIVE (NEGATIVE); PROTEIN, URINE AUTO NEGATIVE (NEGATIVE); RBC, URINE AUTO 2 /HPF (0-3); SQUAMOUS EPITHELIAL CELL UR AU 3 /HPF (0-6); UROBILINOGEN, URINE AUTO 0.2 mg/dL (0.0-2.0); WBC, URINE AUTO 2 /HPF (0-3)
== END ==
LOC: M LAB REF 12:14
PROVIDERS: ATTEND Physician Assistant
DX: N39.0 Urinary tract infection, site not specified (principal); J02.9 Acute pharyngitis, unspecified

== ENCOUNTER → 2024-12-18 | Outpatient (CLI) | payer OTHER ==
[~2024-12-18] MED LIST changes: +VITA100093 PO
[2024-12-18 13:21] LABS: PLATELET COUNT, AUTOMATED 133 10^3/uL (150-450)
[2024-12-18 13:45] LABS: GLUCOSE CHALLENGE TEST 1 HOUR 91 MG/DL (LESS THAN 140)
[2024-12-18 14:08] LABS: Trichomonas vaginalis (AMP) NOT DETECTED (NEGATIVE)
[2024-12-18 14:20] LABS: HIV 1&2 SCREEN NEGATIVE (NEGATIVE)
[2024-12-18 14:28] LABS: HEPATITIS C VIRUS ABY INDEX < 0.02 INDEX (<0.8)
[2024-12-18 14:32] LABS: GC DNA AMPLIFICATION NEGATIVE (NEGATIVE)
== END ==
LOC: M PLALAB 10:08
PROVIDERS: ATTEND Nurse Practitioner Family
DX: Z34.83 Encounter for supervision of other normal pregnancy, third trimester (principal)

== ENCOUNTER → 2025-01-28 | Outpatient (CLI) | payer OTHER ==
[2025-01-28 19:18] LABS: PLATELET COUNT, AUTOMATED 110 10^3/uL (150-450)
== END ==
LOC: M PLALAB 14:17
PROVIDERS: ATTEND Obstetrics & Gynecology
DX: Z34.80 Encounter for supervision of other normal pregnancy, unspecified trimester (principal)

== ENCOUNTER → 2025-02-04 | Outpatient (REF) | payer OTHER | LOC: M SFHCWAGY 12:45 | PROVIDERS: ATTEND Obstetrics & Gynecology | DX: Z34.93 Encounter for supervision of normal pregnancy, unspecified, third trimester (principal) ==

== ENCOUNTER → 2025-02-11 | Outpatient (CLI) | payer OTHER ==
[2025-02-11 19:20] LABS: PLATELET COUNT, AUTOMATED 100 10^3/uL (150-450)
== END ==
LOC: M PLALAB 15:33
PROVIDERS: ATTEND Nurse Practitioner Family
DX: D69.6 Thrombocytopenia, unspecified (principal)

== ENCOUNTER 2025-02-24 07:21 | Inpatient (IN) | payer OTHER ==
[2025-02-24] VITALS (9 sets, daily range): BP systolic 104–128; BP diastolic 62–83; TEMP 98.7; O2SAT 96–100
[~2025-02-24] VITALS: Ht 154.9 cm; Wt 91.1 kg
[2025-02-24] MEDS ORDERED: PRED20TA PO (08:03)
[2025-02-24] MEDS ORDERED: HOME MED LIST COMPLETE! XX SCH (08:05)
[2025-02-24] MEDS: LACTATED RINGER'S 1000 ML IV STA (08:10)
[2025-02-24 08:18] LABS: PLATELET COUNT, AUTOMATED 120 10^3/uL (150-450)
[2025-02-24 09:13] LABS: HIV 1&2 SCREEN NEGATIVE (NEGATIVE)
[2025-02-24] MEDS ORDERED: MORPHINE PRES-FREE INJ 10 MG/10 ML VIAL As Ordered ONE (09:13)
[2025-02-24] MEDS ORDERED: dexAMETHasone 4 MG/ML 1 ML VIAL As Ordered ONE (09:14)
[2025-02-24] MEDS ORDERED: ONDANSETRON 4MG 2ML VIAL As Ordered ONE (09:14)
[2025-02-24] MEDS ORDERED: ACETAMINOPHEN 1000MG/100ML IV BAG As Ordered ONE (09:14)
[2025-02-24] MEDS ORDERED: OXYTOCIN 30UNITS IN 0.9% NaCl 500ML IV BAG As Ordered ONE (09:14)
[2025-02-24 09:20] LABS: HEPATITIS C VIRUS ABY INDEX 0.03 INDEX (<0.8)
[2025-02-24] MEDS: LR 1,000 ML IV SCH ×2 (09:21→19:27)
[2025-02-24] MEDS: ceFAZolin SODIUM 2 GM in DEXTROSE 5% (D5W) ADV/MINI-BAG 50 ML IV ONE (09:50)
[2025-02-24] MEDS: BICITRA 30 ML SOLN UDC PO ONE (10:06)
[2025-02-24] MEDS ORDERED: RHOGAM 300MCG (1500IU) INJ IM SCH (11:45)
[2025-02-24] MEDS ORDERED: PERCOCET 5MG/325MG TAB PO PRN ×2 (11:45)
[2025-02-24] MEDS ORDERED: ONDANSETRON 4MG 2ML VIAL IV PRN (11:50)
[2025-02-24 11:52] LABS: CORD GAS ABE A -0.5; CORD GAS ABE V -2.0; CORD GAS HCO3 A 26.4 MMOL/L; CORD GAS HCO3 V 23.6 MMOL/L; CORD GAS O2 SAT A 45.1 %; CORD GAS O2 SAT V 81.6 %; CORD GAS PCO2 A 52.4 mmHg; CORD GAS PCO2 V 43.3 mmHg; CORD GAS PH A 7.32 UNITS; CORD GAS PH V 7.355 UNITS; CORD GAS PO2 A 19.9 mmHg; CORD GAS PO2 V 37.5 mmHg; CORD GAS SBC A 22.8 MMOL/L; CORD GAS SBC V 22.5 MMOL/L; CORD GAS TCO2 A 28.0 MMOL/L; CORD GAS TCO2 V 25.0 MMOL/L
[2025-02-24] MEDS: ONDANSETRON 4MG 2ML VIAL IV PRN (15:25)
[2025-02-24] MEDS ORDERED: ACETAMINOPHEN 325 MG TAB PO PRN (15:55)
[2025-02-24] MEDS: SIMETHICONE 80MG CHEW TAB PO PRN (16:06)
[2025-02-24] MEDS: ACETAMINOPHEN 500 MG TAB PO PRN (16:06)
[2025-02-24] MEDS: diphenhydrAMINE 50 MG/ML VIAL IV PRN (19:25)
[2025-02-24] MEDS: DOCUSATE SODIUM 100 MG CAPSULE PO SCH (19:26)
[2025-02-25 02:00] VITALS: BP 118/68; O2SAT 98
[2025-02-25 05:27] VITALS: BP 143/71; O2SAT 100
[2025-02-25 08:18] LABS: PLATELET COUNT, AUTOMATED 118 10^3/uL (150-450)
[2025-02-25] MEDS: PRENATAL VITAMINS CHEWABLE TABLET PO SCH (08:47)
[2025-02-25 10:07] VITALS: BP 113/69; O2SAT 98
[2025-02-25 14:00] VITALS: BP 113/71; O2SAT 98
[2025-02-25 18:00] VITALS: BP 115/77; O2SAT 99
[2025-02-25] MEDS: MIRALAX *UNIT DOSE* 17 GM PACKET PO PRN (19:49)
[2025-02-25] MEDS ORDERED: ACET-683 PO (21:37)
[2025-02-25] MEDS ORDERED: OXYC-517 PO (21:37)
[2025-02-25] MEDS ORDERED: COLA100C5 PO (21:37)
[2025-02-25 22:00] VITALS: BP 118/71; O2SAT 99
[2025-02-26 02:00] VITALS: BP 112/68; O2SAT 99
[2025-02-26 06:27] VITALS: BP 113/59; O2SAT 99
[2025-02-26] MEDS: MEASLES,MUMPS,RUBELLA VACCINE INJ (MMR-II) SC.IMMUN ONE (08:00)
== END 2025-02-26 15:30 | disposition home or self-care (01) | DRG 785 ==
LOC: M LDI 07:21 → M OBS 13:25 → PREOBSVTOIN 21:47
PROVIDERS: ADMIT Specialist; ATTEND Specialist
PROC: 0UB70ZZ Excision of Bilateral Fallopian Tubes, Open Approach (ICD-10-PCS; 2025-02-24)
PROC: 10D00Z1 Extraction of Products of Conception, Low, Open Approach (ICD-10-PCS; principal; 2025-02-24 10:13)
DX: O34.211 Maternal care for low transverse scar from previous cesarean delivery (principal); Z3A.39 39 weeks gestation of pregnancy; Z30.2 Encounter for sterilization; Z37.0 Single live birth